=== PATIENT | female | born 1945 | race Caucasian/White ===

== ENCOUNTER 2017-03-30 10:57 | Emergency (ER) | payer OTHER ==
[2017-03-30 10:57] VITALS: BP 142/79
[2017-03-30 11:09] VITALS: BMI 23.8
--- NOTE | 2017-03-30 11:41 | DR.EXTPAIN ---
HPI - Time seen Time seen: 11:36 - PCP Primary Care Physician: OSCAR JACOB - Complaint/Symptoms Chief Complaint Doctor Comments: I agree with statement as recorded Chief Complaint:: PT STATES " LAST FRIDAY I CAUGHT MY SELF ON THE TUB AND MY RIGHT RIBS ARE HURTING.. " Self Treatment fo Chief Complaint: STERIOD INJECTION - Source History Provided: Patient - Mode of arrival Mode of Arrival: Ambulatory - Timing Onset of Chief Complaint: 03/23/17 PMH - PMH Past Medical History: Yes Past Medical History: Hypertension, Hypothyroidism Past Surgical History: Yes Surgical History: Appendectomy, Hysterectomy, Ortho Surgery, Tonsillectomy Past Surgical History Comment: BLADDER TACK , NECK - Family History History of Family Medical Conditions: No Family Medical History: Hypertension - Social History Does patient currently use any type of tobacco product: Yes Have you used tobacco products in the last 12 months: Yes Type of Tobacco Use: Cigarettes How many years tobacco product used: 30 Does any household member use tobacco: No Alcohol Use: None Do you use any recreational Drugs:: No Lives With: Alone Lives Where: Home - infectious screening In the last 2 months have you had wt loss of >10#?: NO Have you had fever, night sweats or hemotysis?: No Have you traveled outside the country in the last 6 months?: No Isolation: Standard ROS - Review of Systems Eyes: No Symptoms Reported ENTM: No Symptoms Reported Respiratoy: No Symptoms Reported Cardiovascular: No Symptoms Reported Gastrointestinal/Abdominal: No Symptoms Reported Genitourinary: No Symptoms Reported Neurological: No Symptoms Reported Musculoskeletal: Rib(s) (right anterior lateral) Integumentary: No Symptoms Reported Hematologic/Lymphatic: No Symptoms Reported Endocrine: No Symptoms Reported Psychiatric: No Symptoms Reported All Other Systems: Reviewed and Negative PE - Vital Signs Vitals: Pulse Rate 68 Respiratory Rate 22 Blood Pressure 142/79 O2 Sat by Pulse Oximetry 97 - General Limitations: No Limitations General Appearance: Alert, In No Apparent Distress - Head Head Exam: Normal Inspection, Atraumatic - Eyes Eye exam: Normal Appearance, PERRL, EOMI - Neck Neck Exam: Normal Inspection - Chest Chest Inspection: Normal Inspection, Symmetric Chest Wall Rise, Tenderness ( anterior inferior lateral chest wall) - Respiratory Respiratory Exam: Normal Lung Sounds Bilat Respiratory Exam: Bilateral Clear to Auscultation - Cardiovascular Cardiovascular Exam: Regular Rate, Normal Rhythm - Abdominal Exam Abdominal Exam: Normal Inspection - Extremities Extremities Exam: Normal Inspection, Full ROM - Upper Extremities Shoulder Exam: Normal Inspection, Full ROM Arm Exam: Normal Inspection Elbow Exam: Normal Inspection Forearm Exam: Normal Inspection Hand Exam: Normal Inspection Neuromotor Exam: Normal Exam Hand Tendon Exam: Flexor Digitorium Profundus (Location) Upper Ext. Vascular Exam: Capillary Refill - Lower Extremities Hip/Pelvis Exam: Normal Inspection Upper Leg Exam: Normal Inspection Knee Exam: Normal Inspection Lower Leg Exam: Normal Inspection Ankle Exam: Normal Inspection Foot/Toe Exam: Normal Inspection Neurovascular/Tendon Exam: Normal Capillary Refill Gait Exam: Observed and Normal - Back Back Exam: Normal Inspection - Neurological Neurological Exam: Alert, Oriented X3, CN II-XII Intact - Skin Skin Exam: Warm, Dry, Intact ROR - XRAY XRAY Interpreted by: Radiologist (chest: negative) - Diagnosis Discharge Problem: Chest wall pain - Discharge Plan Condition: Stable - Follow ups/Referrals Follow ups/Referrals: Chris Kathleen [Primary Care Provider] - 3 days - Instructions
--- NOTE | 2017-03-30 13:47 | RAD ---
Four view right rib series: Indication: Right rib pain. Comparison: Chest series dated March 22, 2015. Findings/impression: No acute skeletal abnormality, to include rib fracture, is identified. No pneum othorax or pleural effusion is seen. Reported By:
== END 2017-03-30 14:10 | disposition home or self-care (01) ==
LOC: ER 11:09
DX: R07.89 Other chest pain (principal)
CPT/HCPCS: 71111; 99282; 99283

== ENCOUNTER 2018-06-15 14:23 | Observation (INO) ==
[2018-06-15] MEDS ORDERED: TUSSIONEX PENNKINETIC SUSP PO PRN (16:47)
[2018-06-15] MEDS ORDERED: DUONEB 0.5 MG/3 MG ONE (16:51)
[2018-06-15] MEDS: DUONEB 0.5 MG/3 MG NEB SCH ×2 (16:57→20:43)
[2018-06-15] MEDS ORDERED: NS 1/2 1000 ML IV 1,000 ML IV ONE (17:24)
[2018-06-15 17:29] LABS: BASOPHILS # (AUTO) 0.1 X10^3/uL (0.0-0.1); BASOPHILS % (AUTO) 0.9 % (0.2-1.0); EOSINOPHILS % (AUTO) 0.1 % (0.9-2.9); HEMATOCRIT 45.1 % (36.0-47.0); HEMOGLOBIN 15.5 g/dL (12.0-16.0); LYMPHOCYTES # (AUTO) 1.6 X10^3/uL (1.3-2.9); LYMPHOCYTES % (AUTO) 11.7 % (21.0-51.0); MEAN CORPUSCULAR HEMOGLOBIN 31.8 pg (27.0-34.0); MEAN CORPUSCULAR HGB CONC 34.5 g/dL (33.0-35.0); MEAN CORPUSCULAR VOLUME 92.2 fL (80.0-100.0); MEAN PLATELET VOLUME 8.6 fL (7.4-11.0); MONOCYTES # (AUTO) 0.6 x10^3/uL (0.3-0.8); MONOCYTES % (AUTO) 4.1 % (0.0-13.0); NEUTROPHILS # (AUTO) 11.3 x10^3/uL (2.2-4.8); NEUTROPHILS % (AUTO) 83.2 % (42.0-75.0); PLATELET COUNT 209 X10^3/uL (150.0-450.0); RED BLOOD COUNT 4.89 X10^6/uL (3.5-5.4); RED CELL DISTRIBUTION WIDTH 13.4 % (11.6-16.5); WHITE BLOOD COUNT 13.6 X10^3/uL (3.6-10.0)
[2018-06-15 17:38] LABS: ALANINE AMINOTRANSFERASE 30 Units/L (12-78); ALBUMIN 3.3 g/dL (3.4-5.0); ALKALINE PHOSPHATASE 72 Units/L (46-116); ASPARTATE AMINO TRANSFERASE 22 Units/L (15-37); BLOOD UREA NITROGEN 18 mg/dL (7-18); CALCIUM 9.1 mg/dL (8.5-10.1); CARBON DIOXIDE 24.6 mmol/L (21-32); CHLORIDE 104 mmol/L (98-107); COR CA(FOR HYPOALB) 9.7 mg/dL (8.5-10.1); COR NA(FOR HYPERGLY) 140 mmol/L (136-145); CREATININE 1.12 mg/dL (0.55-1.02); SODIUM 140 mmol/L (136-145); TOTAL PROTEIN 7.3 g/dL (6.4-8.2); eGFR NON BLACK RACES 51 (>60)
[2018-06-15 18:21] VITALS: BMI 21.5
[2018-06-15] MEDS ORDERED: PREVNAR 13 IM ONE (18:21)
[2018-06-15] MEDS: SOLU-Medrol 40 MG VIAL IVP SCH ×2 (18:21→21:27)
[2018-06-15] MEDS ORDERED: FLUVIRIN IM ONE (18:21)
[2018-06-15] MEDS: LEVAQUIN PREMIX IV 500 MG 500 MG/100 ML BAG IV SCH (18:21)
[2018-06-15] MEDS: ROBITUSSIN DM PO SCH ×2 (18:21→20:27)
[2018-06-15] MEDS: NS 1/2 1000 ML IV 1,000 ML IV SCH (18:21)
[2018-06-15] MEDS: FORTAZ or TAZICEF VIAL INJ IVP SCH ×2 (18:21→21:28)
[2018-06-15] MEDS: NICOTINE PATCH TD SCH (19:07)
[2018-06-15] MEDS ORDERED: NS 100 ML IV + SPIKE MINIBAG* 100 ML IV ONE (19:34)
--- NOTE | 2018-06-15 20:39 | RAD ---
HISTORY: Cough and congestion Study: PA and Lateral views of the chest. Comparison: 03/30/2017 Findings: Lungs are hyperexpanded suggesting generalized air trapping and possible COPD in the appropriate clin ical setting. There is a small subcentimeter calcified granuloma in the right upper lobe. This is unc hanged from previous radiograph. The lungs are clear. No consolidation. There are no pleural effusions. The janel and cardiomediastinal silhouette appear normal. IMPRESSION: 1. Hyperexpansion suggesting generalized air trapping and possible COPD in the appropriate clinical s etting. Lungs appear grossly clear. Reported By:
[2018-06-16] MEDS: DUONEB 0.5 MG/3 MG NEB SCH ×3 (01:21→09:03)
[2018-06-16 05:13] LABS: BASOPHILS % (AUTO) 0.5 % (0.2-1.0); HEMATOCRIT 41.8 % (36.0-47.0); HEMOGLOBIN 14.7 g/dL (12.0-16.0); LYMPHOCYTES # (AUTO) 0.6 X10^3/uL (1.3-2.9); LYMPHOCYTES % (AUTO) 6.3 % (21.0-51.0); MEAN CORPUSCULAR HGB CONC 35.2 g/dL (33.0-35.0); MEAN CORPUSCULAR VOLUME 91.1 fL (80.0-100.0); MEAN PLATELET VOLUME 9.1 fL (7.4-11.0); MONOCYTES # (AUTO) 0.2 x10^3/uL (0.3-0.8); MONOCYTES % (AUTO) 1.6 % (0.0-13.0); NEUTROPHILS % (AUTO) 91.6 % (42.0-75.0); PLATELET COUNT 152 X10^3/uL (150.0-450.0); RED BLOOD COUNT 4.59 X10^6/uL (3.5-5.4); RED CELL DISTRIBUTION WIDTH 13.2 % (11.6-16.5); WHITE BLOOD COUNT 9.8 X10^3/uL (3.6-10.0)
[2018-06-16] MEDS: SOLU-Medrol 40 MG VIAL IVP SCH (05:24)
[2018-06-16] MEDS: FORTAZ or TAZICEF VIAL INJ IVP SCH (05:24)
[2018-06-16] MEDS: NS 1/2 1000 ML IV 1,000 ML IV SCH ×2 (05:53→07:36)
[2018-06-16 06:03] LABS: PLATELET MORPHOLOGY COMMENT NORMAL (NORMAL)
[2018-06-16] MEDS ORDERED: NS 1/2 1000 ML IV 1,000 ML IV ONE (06:07)
[2018-06-16 06:55] LABS: ALANINE AMINOTRANSFERASE 28 Units/L (12-78); ALBUMIN 2.9 g/dL (3.4-5.0); BLOOD UREA NITROGEN 16 mg/dL (7-18); CALCIUM 8.8 mg/dL (8.5-10.1); COR CA(FOR HYPOALB) 9.7 mg/dL (8.5-10.1); CREATININE 0.97 mg/dL (0.55-1.02); eGFR NON BLACK RACES > 60 (>60)
[2018-06-16 06:57] LABS: ALKALINE PHOSPHATASE 61 Units/L (46-116); ASPARTATE AMINO TRANSFERASE 20 Units/L (15-37); CARBON DIOXIDE 19.7 mmol/L (21-32); CHLORIDE 104 mmol/L (98-107); COR NA(FOR HYPERGLY) 139 mmol/L (136-145); SODIUM 138 mmol/L (136-145)
[2018-06-16 06:58] LABS: TOTAL PROTEIN 6.4 g/dL (6.4-8.2)
--- NOTE | 2018-06-16 07:09 | RAD ---
History: Cough and congestion Study: Portable AP chest Comparison: Yesterday Findings: There is no interval change. The lungs are clear of active disease. There is a small calcif ied granuloma in the right upper lobe. The heart size is normal. There is no pleural effusion. Impression: No evidence for acute cardiopulmonary disease Reported By:
[2018-06-16] MEDS: LEVAQUIN PREMIX IV 500 MG 500 MG/100 ML BAG IV SCH (08:45)
[2018-06-16] MEDS: NICOTINE PATCH TD SCH (08:45)
[2018-06-16] MEDS: ROBITUSSIN DM PO SCH (08:45)
[2018-06-16] MEDS ORDERED: MOBIC TAB 15 MG PO SCH (09:00)
[2018-06-16] MEDS ORDERED: NORVASC TAB 2.5 MG PO SCH (09:00)
[2018-06-16] MEDS ORDERED: ALPHAGAN 0.2% OPHTH SOLN OP SCH (09:00)
[2018-06-16] MEDS ORDERED: ZESTRIL TAB 20 MG PO SCH (09:00)
[2018-06-16] MEDS ORDERED: LACTOBACILLUS ACIDOPHILUS PO SCH (09:00)
[2018-06-16] MEDS ORDERED: SYNTHROID 50 mcg TAB PO SCH (09:00)
[2018-06-16] MEDS ORDERED: PREVNAR 13 IM ONE (10:00)
[2018-06-16] MEDS ORDERED: NORVASC TAB 2.5 MG ONE (10:07)
[2018-06-16] MEDS ORDERED: ZESTRIL TAB 20 MG ONE (10:08)
[2018-06-16] MEDS ORDERED: PROTONIX TAB 40 MG PO SCH (11:00)
[2018-06-16 12:35] VITALS: BP 173/73
--- NOTE | 2018-06-16 15:43 | DR.UPDATE ---
H&P Update History and Physical Update: WAS SEEN IN THE OFFICE TODAY FOR A FOLLOW-UP VISIT FOR PNEUMONIA. SHE HAS BEEN TREATED WITH ZITHROMAX PO AND A ROCEPHIN INJECTION IN THE PAST WEEK WITH NO IMPROVEMENT IN SYMPTOMS. SHE WAS ADMITTED TO THE HOSPITAL ON THE PNEUMONIA PROTOCOL ON FORTAZ AND LEVAQUIN IV. A H&P WAS COMPLETED PRIOR TO AD [place]. PATIENT HAS BEEN SEEN AND EXAMINED WITH NO OTHER CHANGES NOTED TO H&P. Changes noted: NO
[2018-06-16] MEDS ORDERED: XALATAN OP SCH (21:00)
--- NOTE | 2018-08-04 19:49 | DR.CARTERS ---
Short Stay Summary - Short Stay Summary for: Short Stay Summary for Date of:: 06/16/18 - Admission Date Date of Admission: 06/15/18 - Discharge Date Discharge Date: 06/16/18 - Admission Diagnoses (1) Pneumonia Status: Acute - Hospital Course Hospital Course: DAY ONE, WAS SEEN IN THE OFFICE TODAY FOR A FOLLOW-UP VISIT FOR PNEUMONIA. SHE HAS BEEN TREATED WITH ZITHROMAX PO AND A ROCEPHIN INJECTION IN THE PAST WEEK WITH NO IMPROVEMENT IN SYMPTOMS. SHE WAS ADMITTED TO THE HOSPITAL ON THE PNEUMONIA PROTOCOL ON FORTAZ AND LEVAQUIN IV. A H&P WAS COMPLETED PRIOR TO ADMISSION. A CHEST X-RAY WAS TAKEN AND REVEALED: Hyperexpansion suggesting generalized air trapping and possible COPD in the appropriate clinical setting. Lungs appear grossly clear. ABNORMAL LABS INCLUDED WBC 13.6, CREATININE 1.12, GFR (NON) 51, GLUCOSE 117, ALBUMIN 3.3, A/G RATIO 0.8. A REPEAT X-RAY THE FOLLOWING AM REVEALED: No evidence for acute cardiopulmonary disease. REPEAT LABS WITHIN NORMAL LIMITS. VITAL SIGNS STABLE. PATIENT VOICED ZERO COMPLAINTS OF THIS AM. ZERO SIGNS AND SYMPTOMS OF ACUTE DISTRESS WERE NOTED. WE PLANNED FOR DISCHARGE. INSTRUCTIONS FOR MEDICATIONS AND FOLLOW UP WERE DISCUSSED WITH PATIENT AND FAMILY, BOTH VERBALIZED UNDERSTANDING. PATIENT TO FOLLOW UP IN OUR OFFICE IN ONE WEEK. PATIENT DISCHARGED HOME IN STABLE CONDITION. - Discharge Medications Discharge Medications: Home Medication List Ventolin HFA 2 puff INHALATION .Q6-8H PRN 06/15/18 [History] brimonidine 1 drp OPHTHALMIC (EYE) BID 06/15/18 [History] latanoprost 1 drp OPHTHALMIC (EYE) HS 06/15/18 [History] hydrocodone-chlorpheniramine 5 ml PO Q12H PRN #100 ml 06/16/18 [Rx] ipratropium-albuterol 1 ea NEB TID #50 units 06/16/18 [Rx] levofloxacin [Levaquin] 750 mg PO QDAY #10 tab 06/16/18 [Rx] methylprednisolone [Medrol (Satinder)] See Rx Instructions .ROUTE .COMPLEX #1 ea 06/16/18 [Rx] pantoprazole 40 mg PO DAILY 06/16/18 [History] Prescriptions: hydrocodone-chlorpheniramine Chris Kathleen ipratropium-albuterol Chris Kathleen levofloxacin [Levaquin] Chris Kathleen methylprednisolone [Medrol (Satinder)] Chris Kathleen Ambulatory Orders amlodipine 2.5 mg PO DAILY 03/22/15 levothyroxine [Levoxyl] 50 mcg PO DAILY 03/22/15 lisinopril 20 mg PO DAILY 03/22/15 Lactobacillus acidophilus 1 cap PO DAILY #30 tab 01/26/16 meloxicam 15 mg PO DAILY #30 tab 03/30/17 - Discharge Plan Disposition: HOME, SELF-CARE Condition: Stable Prescriptions: hydrocodone-chlorpheniramine 5 ml PO Q12H PRN #100 ml PRN Reason: ipratropium-albuterol 1 ea NEB TID #50 units levofloxacin [Levaquin] 750 mg PO QDAY #10 tab methylprednisolone [Medrol (Satinder)] See Rx Instructions .ROUTE .COMPLEX #1 ea - Follow up/Referrals Follow up/Referrals: BIRD LEVY [Nurse Practitioner] - 06/23/18 2:40 pm - Instructions Instructions: Steps to Quit Smoking, [id number], Fall Prevention in the Home, [id number], Hypertension, [id number], Community-Acquired Pneumonia, Adult, [id number] Additional Instructions: DIET TOLERATED. ACTIVITY TOLERATED. Forms: Patient Portal
== END 2018-06-16 12:35 | disposition home or self-care (01) ==
LOC: MED/SURG
PROVIDERS: ADMIT Internal Medicine; ATTEND Internal Medicine
DX: R94.4 Abnormal results of kidney function studies; D72.828 Other elevated white blood cell count; Z23 Encounter for immunization; J18.8 Other pneumonia, unspecified organism; J44.9 Chronic obstructive pulmonary disease, unspecified; Z79.899 Other long term (current) drug therapy; E03.8 Other specified hypothyroidism; R73.09 Other abnormal glucose
CPT/HCPCS: 36415; 71010; 71020; 71045; 71046; 80053; 85025; 87040; 87070; 87205; 94640; 94760; 96367; 96372; 96374; A4222; 90670; G0378; J0713; J1956; J2920; J7050; J7620

== ENCOUNTER 2019-02-23 12:36 | Observation (INO) ==
[2019-02-23] MEDS ORDERED: MORPHINE SULFATE INJ 2 MG INJ IVP PRN (13:04)
--- NOTE | 2019-02-23 13:47 | RAD ---
History: Bilateral cellulitis and feet Study: AP chest Comparison: June 16, 2018 Findings: The lungs are clear and the heart and mediastinum are unremarkable. There is no edema or effusion. Impression: No evidence for active cardiopulmonary disease Reported By:
[2019-02-23 14:37] LABS: BASOPHILS # (AUTO) 0.2 X10^3/uL (0.0-0.1); BASOPHILS % (AUTO) 1.4 % (0.2-1.0); EOSINOPHILS # (AUTO) 0.1 x10^3/uL (0.0-0.2); EOSINOPHILS % (AUTO) 0.9 % (0.9-2.9); HEMATOCRIT 39.8 % (36.0-47.0); HEMOGLOBIN 13.6 g/dL (12.0-16.0); LYMPHOCYTES # (AUTO) 2.2 X10^3/uL (1.3-2.9); LYMPHOCYTES % (AUTO) 18.4 % (21.0-51.0); MEAN CORPUSCULAR HEMOGLOBIN 28.9 pg (27.0-34.0); MEAN CORPUSCULAR HGB CONC 34.3 g/dL (33.0-35.0); MEAN CORPUSCULAR VOLUME 84.2 fL (80.0-100.0); MEAN PLATELET VOLUME 8.5 fL (7.4-11.0); MONOCYTES # (AUTO) 0.7 x10^3/uL (0.3-0.8); NEUTROPHILS # (AUTO) 8.6 x10^3/uL (2.2-4.8); NEUTROPHILS % (AUTO) 73.3 % (42.0-75.0); PLATELET COUNT 259 X10^3/uL (150.0-450.0); RED BLOOD COUNT 4.72 X10^6/uL (3.5-5.4); RED CELL DISTRIBUTION WIDTH 12.5 % (11.6-16.5); WHITE BLOOD COUNT 11.7 X10^3/uL (3.6-10.0)
[2019-02-23 14:51] LABS: ALBUMIN 3.2 g/dL (3.4-5.0); CALCIUM 10.2 mg/dL (8.5-10.1); CARBON DIOXIDE 26.3 mmol/L (21-32); COR CA(FOR HYPOALB) 10.8 mg/dL (8.5-10.1); CREATININE 1.27 mg/dL (0.55-1.02); TOTAL PROTEIN 7.7 g/dL (6.4-8.2)
[2019-02-23] MEDS: NS 1000 ML 1,000 ML IV SCH (15:00)
[2019-02-23 15:37] VITALS: BMI 20.2
[2019-02-23] MEDS: ROCEPHIN VIAL 1 GRAM IVP SCH (16:03)
[2019-02-23] MEDS ORDERED: POTASSIUM CHLORIDE LIQ 20 MEQ UDC PO PRN (17:37)
[2019-02-23] MEDS ORDERED: KLOR-CON PO PRN (17:37)
[2019-02-23] MEDS ORDERED: K-DUR TAB 20 MEQ PO PRN (17:37)
[2019-02-23] MEDS ORDERED: POTASSIUM CHL 60 MEQ/NS 0.45% 500 ML IV PRN (17:37)
[2019-02-23] MEDS ORDERED: K-RIDER 10 MEQ/NS 100 ML 10 MEQ/100 ML BAG IV PRN (17:37)
[2019-02-23] MEDS ORDERED: MICRO K EXTEN CAP 10 MEQ PO PRN (17:37)
[2019-02-23] MEDS ORDERED: POTASSIUM CHL 40 MEQ/NS 0.45% 500 ML IV PRN (17:37)
[2019-02-23] MEDS ORDERED: ZOFRAN INJ 4 MG VIAL IVP PRN (18:12)
[2019-02-23] MEDS: NORCO 5/325 MG TAB PO PRN (19:56)
[2019-02-23 19:57] LABS: BILIRUBIN,URINE NEGATIVE (NEGATIVE); BLOOD/HEMOGLOBIN,URINE NEGATIVE (NEGATIVE); GLUCOSE, URINE NEGATIVE (NEGATIVE); KETONES,URINE NEGATIVE (NEGATIVE); LEUKOCYTE ESTERASE ,URINE NEGATIVE (NEGATIVE); NITRITES,URINE NEGATIVE (NEGATIVE); PROTEIN,URINE NEGATIVE (NEGATIVE); UROBILINOGEN,URINE NORMAL (NORMAL)
[2019-02-23 20:14] LABS: APPEARANCE,URINE CLEAR (CLEAR); COLOR,URINE YELLOW (YELLOW)
[2019-02-23] MEDS: MAGNESIUM SULFATE 1 GRAM/100 mL PREMIX 1 GM/100 ML BAG IV PRN (23:04)
[2019-02-24] MEDS: MAGNESIUM SULFATE 1 GRAM/100 mL PREMIX 1 GM/100 ML BAG IV PRN (00:14)
[2019-02-24] MEDS: NORCO 5/325 MG TAB PO PRN ×3 (02:01→23:45)
[2019-02-24] MEDS: NS 1000 ML 1,000 ML IV SCH ×4 (03:09→20:58)
[2019-02-24 05:34] LABS: BASOPHILS # (AUTO) 0.1 X10^3/uL (0.0-0.1); BASOPHILS % (AUTO) 1.1 % (0.2-1.0); EOSINOPHILS # (AUTO) 0.3 x10^3/uL (0.0-0.2); EOSINOPHILS % (AUTO) 2.7 % (0.9-2.9); HEMATOCRIT 36.5 % (36.0-47.0); HEMOGLOBIN 12.4 g/dL (12.0-16.0); LYMPHOCYTES # (AUTO) 3.1 X10^3/uL (1.3-2.9); LYMPHOCYTES % (AUTO) 28.6 % (21.0-51.0); MEAN CORPUSCULAR HEMOGLOBIN 29.3 pg (27.0-34.0); MEAN CORPUSCULAR VOLUME 86.1 fL (80.0-100.0); MEAN PLATELET VOLUME 8.9 fL (7.4-11.0); MONOCYTES # (AUTO) 0.9 x10^3/uL (0.3-0.8); MONOCYTES % (AUTO) 8.3 % (0.0-13.0); NEUTROPHILS # (AUTO) 6.4 x10^3/uL (2.2-4.8); NEUTROPHILS % (AUTO) 59.3 % (42.0-75.0); PLATELET COUNT 235 X10^3/uL (150.0-450.0); RED BLOOD COUNT 4.24 X10^6/uL (3.5-5.4); RED CELL DISTRIBUTION WIDTH 12.2 % (11.6-16.5); WHITE BLOOD COUNT 10.8 X10^3/uL (3.6-10.0)
[2019-02-24 05:57] LABS: ALANINE AMINOTRANSFERASE 10 Units/L (12-78); ALBUMIN 2.5 g/dL (3.4-5.0); ALKALINE PHOSPHATASE 65 Units/L (46-116); ASPARTATE AMINO TRANSFERASE 14 Units/L (15-37); BLOOD UREA NITROGEN 6 mg/dL (7-18); CALCIUM 8.7 mg/dL (8.5-10.1); CARBON DIOXIDE 25.7 mmol/L (21-32); CHLORIDE 107 mmol/L (98-107); COR CA(FOR HYPOALB) 9.9 mg/dL (8.5-10.1); COR NA(FOR HYPERGLY) 140 mmol/L (136-145); CREATININE 0.98 mg/dL (0.55-1.02); SODIUM 140 mmol/L (136-145); TOTAL PROTEIN 6.6 g/dL (6.4-8.2); eGFR NON BLACK RACES 59 (>60)
[2019-02-24 06:20] LABS: ERYTHROCYTE SEDIMENTATION RATE 40 MM/HOUR (0-20)
[2019-02-24] MEDS: ROCEPHIN VIAL 1 GRAM IVP SCH (08:03)
[2019-02-24] MEDS: PROVENTIL NEB TX 0.083% 2.5MG/ 3ML NEB PRN ×2 (09:53→21:06)
[2019-02-24] MEDS ORDERED: VOLTAREN 1 % GEL MULTI DOSE TUBE TOP PRN (10:45)
[2019-02-24] MEDS: ZOSYN VIAL 3.375 GRAMS 3.375 G in NS 100 ML IV + SPIKE MINIBAG* 100 ML IV SCH ×3 (11:17→21:02)
[2019-02-24] MEDS: PROTONIX INJ 40 MG VIAL IVP SCH (11:17)
[2019-02-24] MEDS: TORADOL 15 MG VIAL IVP SCH ×3 (11:18→22:25)
[2019-02-24] MEDS ORDERED: ZESTRIL TAB 20 MG ONE (11:36)
[2019-02-24] MEDS: SYNTHROID 50 mcg TAB PO SCH (11:37)
[2019-02-24] MEDS: ESTRACE PO SCH (11:37)
[2019-02-24] MEDS: ZESTRIL TAB 20 MG PO SCH (11:37)
[2019-02-24] MEDS: ALPHAGAN 0.2% OPHTH SOLN OP SCH ×2 (11:39→20:57)
[2019-02-24] MEDS: VOLTAREN 1 % GEL MULTI DOSE TUBE TOP SCH ×3 (12:46→20:54)
[2019-02-24] MEDS: XALATAN OP SCH (20:48)
[2019-02-24] MEDS: NEURONTIN CAP 100 MG PO SCH ×2 (20:51→20:54)
[2019-02-25] MEDS: NS 1000 ML 1,000 ML IV SCH ×3 (05:16→17:22)
[2019-02-25 05:24] LABS: BASOPHILS # (AUTO) 0.1 X10^3/uL (0.0-0.1); BASOPHILS % (AUTO) 0.9 % (0.2-1.0); EOSINOPHILS # (AUTO) 0.3 x10^3/uL (0.0-0.2); EOSINOPHILS % (AUTO) 3.6 % (0.9-2.9); HEMOGLOBIN 11.2 g/dL (12.0-16.0); LYMPHOCYTES % (AUTO) 25.1 % (21.0-51.0); MEAN CORPUSCULAR HEMOGLOBIN 29.4 pg (27.0-34.0); MEAN CORPUSCULAR VOLUME 86.4 fL (80.0-100.0); MEAN PLATELET VOLUME 8.8 fL (7.4-11.0); MONOCYTES # (AUTO) 0.6 x10^3/uL (0.3-0.8); MONOCYTES % (AUTO) 6.8 % (0.0-13.0); NEUTROPHILS # (AUTO) 5.2 x10^3/uL (2.2-4.8); NEUTROPHILS % (AUTO) 63.6 % (42.0-75.0); PLATELET COUNT 212 X10^3/uL (150.0-450.0); RED BLOOD COUNT 3.82 X10^6/uL (3.5-5.4); RED CELL DISTRIBUTION WIDTH 12.5 % (11.6-16.5); WHITE BLOOD COUNT 8.2 X10^3/uL (3.6-10.0)
[2019-02-25 05:42] LABS: ALANINE AMINOTRANSFERASE 11 Units/L (12-78); ALBUMIN 2.1 g/dL (3.4-5.0); ALKALINE PHOSPHATASE 58 Units/L (46-116); ASPARTATE AMINO TRANSFERASE 16 Units/L (15-37); BLOOD UREA NITROGEN 9 mg/dL (7-18); CALCIUM 8.2 mg/dL (8.5-10.1); CARBON DIOXIDE 25.4 mmol/L (21-32); CHLORIDE 110 mmol/L (98-107); COR CA(FOR HYPOALB) 9.7 mg/dL (8.5-10.1); CREATININE 1.01 mg/dL (0.55-1.02); SODIUM 142 mmol/L (136-145); TOTAL PROTEIN 5.8 g/dL (6.4-8.2); eGFR NON BLACK RACES 57 (>60)
[2019-02-25] MEDS: TORADOL 15 MG VIAL IVP SCH ×4 (05:55→22:00)
[2019-02-25] MEDS: ZOSYN VIAL 3.375 GRAMS 3.375 G in NS 100 ML IV + SPIKE MINIBAG* 100 ML IV SCH ×3 (06:03→21:30)
[2019-02-25] MEDS: PROVENTIL NEB TX 0.083% 2.5MG/ 3ML NEB PRN ×4 (07:40→21:29)
[2019-02-25] MEDS ORDERED: NORVASC TAB 2.5 MG ONE (08:21)
[2019-02-25] MEDS ORDERED: ZESTRIL TAB 20 MG ONE (08:22)
[2019-02-25] MEDS: ESTRACE PO SCH (08:27)
[2019-02-25] MEDS: PROTONIX INJ 40 MG VIAL IVP SCH (08:27)
[2019-02-25] MEDS: NORVASC TAB 2.5 MG PO SCH (08:27)
[2019-02-25] MEDS: SYNTHROID 50 mcg TAB PO SCH (08:27)
[2019-02-25] MEDS: ZESTRIL TAB 20 MG PO SCH (08:28)
[2019-02-25] MEDS: ALPHAGAN 0.2% OPHTH SOLN OP SCH ×2 (08:28→21:29)
[2019-02-25] MEDS: VOLTAREN 1 % GEL MULTI DOSE TUBE TOP SCH ×4 (08:29→21:29)
[2019-02-25 09:25] VITALS: BP 133/45
[2019-02-25] MEDS: MIRALAX POWDER (1 DOSE 17 G) PO SCH (10:02)
[2019-02-25] MEDS: NICOTINE PATCH TD SCH (21:28)
[2019-02-25] MEDS: NEURONTIN CAP 100 MG PO SCH (21:29)
[2019-02-25] MEDS: XALATAN OP SCH (21:29)
--- NOTE | 2019-02-25 21:29 | PCM.PROG ---
Progress Note - Progress Note for Day of Date of Exam: 02/24/19 - Subjective Subjective: WAS ADMITTED FOR CELLULITIS TO THE RIGHT AND LEFT FOOT. SHE REPORTS HAVING A PEDICURE ON 02/20. SYMPTOMS STARTED AFTER HAVING PEDICURE. SHE RECEIVIED A ROCEPHIN INJECTION IN THE OFFICE ON 02/22 WITHOUT IMPROVEMENT IN SYMPTOMS. TODAY, SHE IS ALERT AND ORIENTED, LYING IN BED ON MORNING ROUNDS. SHE CONTINUES WITH ERYTHEMA AND EDEMA TO BILATERAL LOWER EXTREMITIES. SHE REPORTS PAIN TO LOWER EXTREMITIES WELL. HER VITALS THIS MORNING ARE: 98.2-81-20-95%-136/60. LABS WERE OBTAINED. ABNORMAL LAB VALUES INCLUDE THE FOLLOWING: WBC 10.8, BUN 6, GLUCOSE 117, AST 14, ALT 10, CRP 79.20, ALBUMIN 2.5. BLOOD CULTURES ARE PENDING. SHE IS CURRENTLY RECEIVING IV ROCEPHIN. WE WILL DISCONTINUE ROCEPHIN TODAY AND START ZOSYN 3.375G IV TID, TORADOL 15MG IV Q6H MENDY, PROTONIX IV, AND WILL OBTAIN A URIC ACID LEVEL. WE WILL FOLLOW UP WITH AM LABS AND CONTINUE TO MONITOR. - Past Medical Family Social History Past Med/Fam/Surg Hx: No changes since H&P Allergies: Allergies iodine Allergy (Unknown, Verified 06/15/18 16:37) lorazepam [From Ativan] Allergy (Unknown, Verified 06/15/18 16:37) Sulfa (Sulfonamide Antibiotics) [SULFA] Allergy (Unknown, Verified 06/15/18 16:37) - Review of Systems ROS: No change since H&P - Vital Signs and I&O's Vital Signs: Temperature 98.0 F Pulse Rate [Right Brachial] 76 Pulse Rate 82 Respiratory Rate 18 Blood Pressure [Right Arm] 133/45 Blood Pressure 117/67 O2 Sat by Pulse Oximetry 97 Intake and Output: Intake & Output 02/23/19 02/24/19 02/25/19 02/26/19 11:59 11:59 11:59 11:59 Intake Total 1660 / 1660 1604 / 1604 1155 / 1155 Output Total 600 / 600 300 / 300 200 / 200 Balance 1060 / 1060 1304 / 1304 955 / 955 - Physical Exam Oriented: Normal Eyes: Normal Ear: Normal Nose: Normal Throat: Normal Respiratory: Normal Cardiovascular: Normal : Normal Auscultation: Bowel Sounds: Normal Palpation: Normal Tenderness: Normal Skin: Red (BILATERAL FEET AND GREAT TOE), Tender, Hot Musculoskeletal: Right, Left, Foot, Swelling, Tender Psychiatric: Normal Mood Description: Calm Affect: Normal Speech Pattern: Clear, Appropriate - Laboratory and Diagnostics Result Diagrams: 02/25/19 04:48 02/25/19 04:48 Labs: 02/23/19 14:07 Blood Blood Culture - Preliminary 02/23/19 14:00 Blood Blood Culture - Preliminary Laboratory WBC 8.2 X10^3/uL (3.6-10.0) 02/25/19 04:48 RBC 3.82 X10^6/uL (3.5-5.4) 02/25/19 04:48 Hgb 11.2 g/dL (12.0-16.0) L 02/25/19 04:48 Hct 33.0 % (36.0-47.0) L 02/25/19 04:48 MCV 86.4 fL (80.0-100.0) 02/25/19 04:48 MCH 29.4 pg (27.0-34.0) 02/25/19 04:48 MCHC 34.0 g/dL (33.0-35.0) 02/25/19 04:48 RDW 12.5 % (11.6-16.5) 02/25/19 04:48 Plt Count 212 X10^3/uL (150.0-450.0) 02/25/19 04:48 MPV 8.8 fL (7.4-11.0) 02/25/19 04:48 Neut % (Auto) 63.6 % (42.0-75.0) 02/25/19 04:48 Lymph % (Auto) 25.1 % (21.0-51.0) 02/25/19 04:48 [place] % (Auto) 6.8 % (0.0-13.0) 02/25/19 04:48 Eos % (Auto) 3.6 % (0.9-2.9) H 02/25/19 04:48 Baso % (Auto) 0.9 % (0.2-1.0) 02/25/19 04:48 Neut # (Auto) 5.2 x10^3/uL (2.2-4.8) H 02/25/19 04:48 Lymph # (Auto) 2.0 X10^3/uL (1.3-2.9) 02/25/19 04:48 [place] # (Auto) 0.6 x10^3/uL (0.3-0.8) 02/25/19 04:48 Eos # (Auto) 0.3 x10^3/uL (0.0-0.2) H 02/25/19 04:48 Baso # (Auto) 0.1 X10^3/uL (0.0-0.1) 02/25/19 04:48 Absolute Nucleated RBC 0.0 /100WBC 02/25/19 04:48 ESR 40 MM/HOUR (0-20) H 02/24/19 04:54 Sodium 142 mmol/L (136-145) 02/25/19 04:48 Corrected Sodium TNP 02/25/19 04:48 Potassium 4.0 mmol/L (3.5-5.1) 02/25/19 04:48 Chloride 110 mmol/L (98-107) H 02/25/19 04:48 Carbon Dioxide 25.4 mmol/L (21-32) 02/25/19 04:48 BUN 9 mg/dL (7-18) 02/25/19 04:48 Creatinine 1.01 mg/dL (0.55-1.02) 02/25/19 04:48 Est GFR (MDRD) Af Amer > 60 (>60) 02/25/19 04:48 Est GFR (MDRD) Non-Af 57 (>60) L 02/25/19 04:48 Glucose 96 mg/dL (65-99) 02/25/19 04:48 Uric Acid 5.6 mg/dL (2.6-6.0) 02/24/19 04:54 Calcium 8.2 mg/dL (8.5-10.1) L 02/25/19 04:48 Corrected Calcium 9.7 mg/dL (8.5-10.1) 02/25/19 04:48 Magnesium 2.4 mg/dL (1.7-2.9) 02/24/19 04:54 Total Bilirubin 0.20 mg/dL (0.2-1.0) 02/25/19 04:48 AST 16 Units/L (15-37) 02/25/19 04:48 ALT 11 Units/L (12-78) L 02/25/19 04:48 Alkaline Phosphatase 58 Units/L (46-116) 02/25/19 04:48 C-Reactive Protein 79.20 mg/L (0-3.0) H 02/24/19 04:54 Total Protein 5.8 g/dL (6.4-8.2) L 02/25/19 04:48 Albumin 2.1 g/dL (3.4-5.0) L 02/25/19 04:48 Globulin 3.7 g/dL (2.5-4.5) 02/25/19 04:48 Albumin/Globulin Ratio 0.6 Ratio (1.1-2.1) L 02/25/19 04:48 Specimen Type Clean catch urine 02/23/19 19:45 Urine Color Yellow (YELLOW) 02/23/19 19:45 Urine Appearance Clear (CLEAR) 02/23/19 19:45 Urine pH 7.0 (5.0 - 8.0) 02/23/19 19:45 Ur Specific [place] 1.010 (1.000-1.030) 02/23/19 19:45 Urine Protein Negative (NEGATIVE) 02/23/19 19:45 Urine Glucose (UA) Negative (NEGATIVE) 02/23/19 19:45 Urine Ketones Negative (NEGATIVE) 02/23/19 19:45 Urine Occult Blood Negative (NEGATIVE) 02/23/19 19:45 Urine Nitrite Negative (NEGATIVE) 02/23/19 19:45 Urine Bilirubin Negative (NEGATIVE) 02/23/19 19:45 Urine Urobilinogen Normal (NORMAL) 02/23/19 19:45 Ur Leukocyte Esterase Negative (NEGATIVE) 02/23/19 19:45 - Plan (1) Cellulitis of both lower extremities Status: Acute Plan: IV ZOSYN, IV TORADOL, CONTINUE TO MONITOR
--- NOTE | 2019-02-25 21:55 | PCM.PROG ---
Progress Note - Progress Note for Day of Date of Exam: 02/25/19 - Subjective Subjective: WAS ADMITTED FOR CELLULITIS TO THE RIGHT AND LEFT FOOT. SHE REPORTS HAVING A PEDICURE ON 02/20. SYMPTOMS STARTED AFTER HAVING PEDICURE. SHE RECEIVIED A ROCEPHIN INJECTION IN THE OFFICE ON 02/22 WITHOUT IMPROVEMENT IN SYMPTOMS. TODAY, SHE IS ALERT AND ORIENTED, LYING IN BED ON MORNING ROUNDS. SHE CONTINUES WITH PAIN, ERYTHEMA, AND EDEMA TO BILATERAL LOWER EXTREMITIES. REDNESS APPEARS TO HAVE INCREASED TODAY. HER VITALS THIS MORNING ARE: 98.0-76-20-95%-133/45. LABS WERE OBTAINED. ABNORMAL LAB VALUES INCLUDE THE FOLLOWING: HGB 11.2, HCT 33.0, CHLORIDE 110, CALCIUM 8.2, ALT 11, TOTAL PROTEIN 5.8, ALBUMIN 2.1. BLOOD CULTURES ARE PENDING. SHE IS CURRENTLY RECEIVING ZOSYN 3.375G IV TID. WE WILL CONTINUE WITH IV ANTIBIOTICS AND PAIN CONTROL TODAY. OTHERWISE, WE WILL FOLLOW UP WITH AM LABS AND CONTINUE TO MONITOR. - Past Medical Family Social History Past Med/Fam/Surg Hx: No changes since H&P Allergies: Allergies iodine Allergy (Unknown, Verified 06/15/18 16:37) lorazepam [From Ativan] Allergy (Unknown, Verified 06/15/18 16:37) Sulfa (Sulfonamide Antibiotics) [SULFA] Allergy (Unknown, Verified 06/15/18 16:37) - Review of Systems ROS: No change since H&P - Vital Signs and I&O's Vital Signs: Temperature 98.0 F Pulse Rate [Right Brachial] 76 Pulse Rate 79 Respiratory Rate 18 Blood Pressure [Right Arm] 133/45 Blood Pressure 117/67 O2 Sat by Pulse Oximetry 96 Intake and Output: Intake & Output 02/23/19 02/24/19 02/25/19 02/26/19 11:59 11:59 11:59 11:59 Intake Total 1660 / 1660 1604 / 1604 1155 / 1155 Output Total 600 / 600 300 / 300 200 / 200 Balance 1060 / 1060 1304 / 1304 955 / 955 - Physical Exam Oriented: Normal Eyes: Normal Ear: Normal Nose: Normal Throat: Normal Respiratory: Normal Cardiovascular: Normal : Normal Auscultation: Bowel Sounds: Normal Palpation: Normal Tenderness: Normal Skin: Red (BILATERAL FEET AND GREAT TOE), Tender, Hot Musculoskeletal: Right, Left, Foot, Swelling, Tender Psychiatric: Normal Mood Description: Calm Affect: Normal Speech Pattern: Clear, Appropriate - Laboratory and Diagnostics Result Diagrams: 02/25/19 04:48 02/25/19 04:48 Labs: 02/23/19 14:07 Blood Blood Culture - Preliminary 02/23/19 14:00 Blood Blood Culture - Preliminary Laboratory WBC 8.2 X10^3/uL (3.6-10.0) 02/25/19 04:48 RBC 3.82 X10^6/uL (3.5-5.4) 02/25/19 04:48 Hgb 11.2 g/dL (12.0-16.0) L 02/25/19 04:48 Hct 33.0 % (36.0-47.0) L 02/25/19 04:48 MCV 86.4 fL (80.0-100.0) 02/25/19 04:48 MCH 29.4 pg (27.0-34.0) 02/25/19 04:48 MCHC 34.0 g/dL (33.0-35.0) 02/25/19 04:48 RDW 12.5 % (11.6-16.5) 02/25/19 04:48 Plt Count 212 X10^3/uL (150.0-450.0) 02/25/19 04:48 MPV 8.8 fL (7.4-11.0) 02/25/19 04:48 Neut % (Auto) 63.6 % (42.0-75.0) 02/25/19 04:48 Lymph % (Auto) 25.1 % (21.0-51.0) 02/25/19 04:48 [place] % (Auto) 6.8 % (0.0-13.0) 02/25/19 04:48 Eos % (Auto) 3.6 % (0.9-2.9) H 02/25/19 04:48 Baso % (Auto) 0.9 % (0.2-1.0) 02/25/19 04:48 Neut # (Auto) 5.2 x10^3/uL (2.2-4.8) H 02/25/19 04:48 Lymph # (Auto) 2.0 X10^3/uL (1.3-2.9) 02/25/19 04:48 [place] # (Auto) 0.6 x10^3/uL (0.3-0.8) 02/25/19 04:48 Eos # (Auto) 0.3 x10^3/uL (0.0-0.2) H 02/25/19 04:48 Baso # (Auto) 0.1 X10^3/uL (0.0-0.1) 02/25/19 04:48 Absolute Nucleated RBC 0.0 /100WBC 02/25/19 04:48 ESR 40 MM/HOUR (0-20) H 02/24/19 04:54 Sodium 142 mmol/L (136-145) 02/25/19 04:48 Corrected Sodium TNP 02/25/19 04:48 Potassium 4.0 mmol/L (3.5-5.1) 02/25/19 04:48 Chloride 110 mmol/L (98-107) H 02/25/19 04:48 Carbon Dioxide 25.4 mmol/L (21-32) 02/25/19 04:48 BUN 9 mg/dL (7-18) 02/25/19 04:48 Creatinine 1.01 mg/dL (0.55-1.02) 02/25/19 04:48 Est GFR (MDRD) Af Amer > 60 (>60) 02/25/19 04:48 Est GFR (MDRD) Non-Af 57 (>60) L 02/25/19 04:48 Glucose 96 mg/dL (65-99) 02/25/19 04:48 Uric Acid 5.6 mg/dL (2.6-6.0) 02/24/19 04:54 Calcium 8.2 mg/dL (8.5-10.1) L 02/25/19 04:48 Corrected Calcium 9.7 mg/dL (8.5-10.1) 02/25/19 04:48 Magnesium 2.4 mg/dL (1.7-2.9) 02/24/19 04:54 Total Bilirubin 0.20 mg/dL (0.2-1.0) 02/25/19 04:48 AST 16 Units/L (15-37) 02/25/19 04:48 ALT 11 Units/L (12-78) L 02/25/19 04:48 Alkaline Phosphatase 58 Units/L (46-116) 02/25/19 04:48 C-Reactive Protein 79.20 mg/L (0-3.0) H 02/24/19 04:54 Total Protein 5.8 g/dL (6.4-8.2) L 02/25/19 04:48 Albumin 2.1 g/dL (3.4-5.0) L 02/25/19 04:48 Globulin 3.7 g/dL (2.5-4.5) 02/25/19 04:48 Albumin/Globulin Ratio 0.6 Ratio (1.1-2.1) L 02/25/19 04:48 Specimen Type Clean catch urine 02/23/19 19:45 Urine Color Yellow (YELLOW) 02/23/19 19:45 Urine Appearance Clear (CLEAR) 02/23/19 19:45 Urine pH 7.0 (5.0 - 8.0) 02/23/19 19:45 Ur Specific [place] 1.010 (1.000-1.030) 02/23/19 19:45 Urine Protein Negative (NEGATIVE) 02/23/19 19:45 Urine Glucose (UA) Negative (NEGATIVE) 02/23/19 19:45 Urine Ketones Negative (NEGATIVE) 02/23/19 19:45 Urine Occult Blood Negative (NEGATIVE) 02/23/19 19:45 Urine Nitrite Negative (NEGATIVE) 02/23/19 19:45 Urine Bilirubin Negative (NEGATIVE) 02/23/19 19:45 Urine Urobilinogen Normal (NORMAL) 02/23/19 19:45 Ur Leukocyte Esterase Negative (NEGATIVE) 02/23/19 19:45 - Plan (1) Cellulitis of both lower extremities Status: Acute Plan: IV ZOSYN, IV TORADOL, CONTINUE TO MONITOR
[2019-02-26] MEDS: PROVENTIL NEB TX 0.083% 2.5MG/ 3ML NEB PRN ×2 (03:02→08:27)
[2019-02-26 05:34] LABS: BASOPHILS # (AUTO) 0.1 X10^3/uL (0.0-0.1); BASOPHILS % (AUTO) 1.1 % (0.2-1.0); EOSINOPHILS # (AUTO) 0.2 x10^3/uL (0.0-0.2); EOSINOPHILS % (AUTO) 2.5 % (0.9-2.9); HEMATOCRIT 35.5 % (36.0-47.0); HEMOGLOBIN 12.2 g/dL (12.0-16.0); LYMPHOCYTES # (AUTO) 1.5 X10^3/uL (1.3-2.9); LYMPHOCYTES % (AUTO) 18.5 % (21.0-51.0); MEAN CORPUSCULAR HEMOGLOBIN 29.5 pg (27.0-34.0); MEAN CORPUSCULAR HGB CONC 34.4 g/dL (33.0-35.0); MEAN CORPUSCULAR VOLUME 85.9 fL (80.0-100.0); MEAN PLATELET VOLUME 8.9 fL (7.4-11.0); MONOCYTES # (AUTO) 0.5 x10^3/uL (0.3-0.8); MONOCYTES % (AUTO) 6.1 % (0.0-13.0); NEUTROPHILS # (AUTO) 5.9 x10^3/uL (2.2-4.8); NEUTROPHILS % (AUTO) 71.8 % (42.0-75.0); PLATELET COUNT 238 X10^3/uL (150.0-450.0); RED BLOOD COUNT 4.13 X10^6/uL (3.5-5.4); RED CELL DISTRIBUTION WIDTH 12.4 % (11.6-16.5); WHITE BLOOD COUNT 8.2 X10^3/uL (3.6-10.0)
[2019-02-26 05:55] LABS: ALANINE AMINOTRANSFERASE 25 Units/L (12-78); ALBUMIN 2.5 g/dL (3.4-5.0); ALKALINE PHOSPHATASE 90 Units/L (46-116); ASPARTATE AMINO TRANSFERASE 40 Units/L (15-37); BLOOD UREA NITROGEN 6 mg/dL (7-18); CALCIUM 9.2 mg/dL (8.5-10.1); CARBON DIOXIDE 22.9 mmol/L (21-32); CHLORIDE 110 mmol/L (98-107); COR CA(FOR HYPOALB) 10.4 mg/dL (8.5-10.1); CREATININE 0.98 mg/dL (0.55-1.02); SODIUM 143 mmol/L (136-145); TOTAL PROTEIN 6.9 g/dL (6.4-8.2); eGFR NON BLACK RACES 59 (>60)
[2019-02-26] MEDS: ZOSYN VIAL 3.375 GRAMS 3.375 G in NS 100 ML IV + SPIKE MINIBAG* 100 ML IV SCH ×2 (06:23→13:42)
[2019-02-26] MEDS: TORADOL 15 MG VIAL IVP SCH ×2 (06:24→11:10)
[2019-02-26] MEDS: NS 1000 ML 1,000 ML IV SCH (07:07)
[2019-02-26] MEDS ORDERED: NORVASC TAB 2.5 MG ONE (08:10)
[2019-02-26] MEDS ORDERED: ZESTRIL TAB 20 MG ONE (08:11)
[2019-02-26] MEDS: ALPHAGAN 0.2% OPHTH SOLN OP SCH (09:22)
[2019-02-26] MEDS: ZESTRIL TAB 20 MG PO SCH (09:22)
[2019-02-26] MEDS: NORVASC TAB 2.5 MG PO SCH (09:22)
[2019-02-26] MEDS: MIRALAX POWDER (1 DOSE 17 G) PO SCH (09:23)
[2019-02-26] MEDS: NICOTINE PATCH TD SCH (09:23)
[2019-02-26] MEDS: SYNTHROID 50 mcg TAB PO SCH (09:24)
[2019-02-26] MEDS: ESTRACE PO SCH (09:24)
[2019-02-26] MEDS: VOLTAREN 1 % GEL MULTI DOSE TUBE TOP SCH ×2 (09:25→13:16)
[2019-02-26] MEDS: PROTONIX INJ 40 MG VIAL IVP SCH (10:31)
[2019-02-27] MEDS ORDERED: PROTONIX TAB 40 MG PO SCH (09:00)
== END 2019-02-26 02:20 | disposition home or self-care (01) ==
LOC: MED/SURG
PROVIDERS: ADMIT Internal Medicine; ATTEND Internal Medicine
DX: R79.82 Elevated C-reactive protein (CRP); L03.032 Cellulitis of left toe; L03.031 Cellulitis of right toe; Z79.899 Other long term (current) drug therapy
CPT/HCPCS: 36415; 71010; 71045; 80053; 81003; 83735; 84550; 85025; 85652; 86140; 87040; 94640; A4216; A4222; C9113; G0378; J0696; J1885; J2270; J2405; J2543; J3475; J7030; J7050; J7613